=== PATIENT | male | born 1985 ===

== ENCOUNTER → 2022-09-17 09:15 | Outpatient (CLI) | payer OTHER, SELFPAY ==
--- NOTE | ~2022-09-17 | MR_ITS ---
MRI of the left foot CLINICAL HISTORY: Neoplasm of uncertain behavior TECHNIQUE: Axial T1-weighted, T2 fat-sat, and T1 fat-sat images, sagittal T1-weighted, T2 fat-sat, an d STIR images, and coronal T1-weighted and T2 fat-sat images were performed. Following intravenous ad ministration of 17 cc MultiHance gadolinium, T1-weighted fat-sat imaging was performed in the axial, coronal, and sagittal planes. FINDINGS: There is mild degenerative change at the first metatarsophalangeal joint, with focal subcho ndral cystic change is marrow edema at the inferior first metatarsal head. Small joint effusion prese nt at the first metatarsal phalangeal joint. There is minimal degenerative change at the interphalang eal joint of the great toe. Remaining joint spaces and bone marrow signals are essentially unremarkab le. There is fluid collection at the dorsal aspect of the third metatarsal interspace, consistent with in termetatarsal bursitis. No enhancing solid soft tissue mass identified. Visualized flexor and extenso r tendons are unremarkable. There does plantar fascia is intact. IMPRESSION: Intermetatarsal bursitis at the third interspace, as detailed above. No solid soft tissue mass identified. Mild degenerative change at the first MTP joint with small joint effusion. Reviewed, dictated and finalized at location .
== END ==
DX: M19.072 Primary osteoarthritis, left ankle and foot (principal)
CPT/HCPCS: 73720; A9577